=== PATIENT | female | born 1990 | race Caucasian/White ===

== ENCOUNTER → 2016-07-27 | Outpatient (CLI) | payer MEDICAID ==
[2016-07-27 09:29] LABS: ABSOLUTE EOSINOPHILS # (AUTO) 0.2 10^3/uL (0.0-0.6); ABSOLUTE LYMPHOCYTES (AUTO) 1.8 10^3/uL (0.5-4.7); ABSOLUTE MONOCYTES (AUTO) 0.7 10^3/uL (0.1-1.4); ABSOLUTE NEUT (AUTO) 3.5 10^3/uL (1.7-8.2); BASOPHILS % (AUTO) 0.7 % (0-2); EOSINOPHILS % (AUTO) 3.2 % (0-6); HEMATOCRIT 43.9 % (36.0-47.0); HEMOGLOBIN 15.1 g/dL (12.0-15.5); HGB HCT DIFFERENCE 1.4; LYMPHOCYTES % (AUTO) 28.2 % (13-45); MEAN CORPUSCULAR HEMOGLOBIN 28.7 pg (27.0-33.4); MEAN CORPUSCULAR HGB CONC 34.3 g/dL (32.0-36.0); MEAN CORPUSCULAR VOLUME 84 fl (80-97); MONOCYTES % (AUTO) 11.4 % (3-13); RED BLOOD COUNT 5.25 10^6/uL (3.72-5.28); RED CELL DISTRIBUTION WIDTH 13.5 % (11.5-14.0); SEGMENTED NEUTROPHILS % (AUTO) 56.5 % (42-78); WHITE BLOOD COUNT 6.2 10^3/uL (4.0-10.5)
[2016-07-27 09:31] LABS: APPEARANCE,URINE SLIGHTLY-CLOUDY; BILIRUBIN,URINE NEGATIVE (NEGATIVE); GLUCOSE, URINE NEGATIVE (NEGATIVE); KETONES,URINE NEGATIVE (NEGATIVE); LEUKOCYTE ESTERASE,URINE NEGATIVE (NEGATIVE); NITRITE,URINE NEGATIVE (NEGATIVE); PROTEIN,URINE NEGATIVE (NEGATIVE); URINE SPECIFIC GRAVITY 1.014; UROBILINOGEN,URINE NEGATIVE mg/dL (<2.0)
[2016-07-27 09:48] LABS: ALANINE AMINOTRANSFERASE 37 U/L (9-52); ALBUMIN 4.5 g/dL (3.5-5.0); ALKALINE PHOSPHATASE 70 U/L (38-126); ANION GAP 12 (5-19); ASPARTATE AMINO TRANSFERASE 26 U/L (14-36); BILIRUBIN,TOTAL 0.7 mg/dL (0.2-1.3); BLOOD UREA NITROGEN 8 mg/dL (7-20); CALCIUM 9.4 mg/dL (8.4-10.2); CARBON DIOXIDE 25 mmol/L (22-30); CHLORIDE 105 mmol/L (98-107); CHOLESTEROL 156.85 mg/dL (0-200); CREATININE RESULT 0.52 mg/dL (0.52-1.25); Direct HDL 32 mg/dL (>40); GLUCOSE 87 mg/dL (75-110); POTASSIUM 4.2 mmol/L (3.6-5.0); SODIUM 141.9 mmol/L (137-145); TRIGLYCERIDES 99 mg/dL (<150)
[2016-07-27 10:00] LABS: DIRECT LDL 103 mg/dL (<100)
[2016-07-27 10:02] LABS: FREE T3 6.72 pg/mL (2.77-5.27)
[2016-07-27 10:16] LABS: THYROID STIMULATING HORMONE 1.67 uIU/mL (0.47-4.68)
[2016-07-27 10:26] LABS: ADD HIVPANEL? NO; HIV (1 AND 2) ANTIBODY NEGATIVE (NEGATIVE)
[2016-07-28 07:44] LABS: HEPATITIS C VIRUS AB <0.1 s/co ratio (0.0-0.9)
== END ==
LOC: OD 08:22
PROVIDERS: ATTEND Emergency Medicine
DX: F11.20 Opioid dependence, uncomplicated (principal); Z79.899 Other long term (current) drug therapy; Z20.6 Contact with and (suspected) exposure to human immunodeficiency virus [HIV]
CPT/HCPCS: 36415; 80053; 80061; 81001; 81025; 82977; 83036; 84439; 84443; 84481; 84702; 85025; 86592; 86701; 86803; 86804; 87340

== ENCOUNTER → 2016-08-10 | Outpatient (CLI) | payer MEDICAID | LOC: OD 08:20 | PROVIDERS: ATTEND Emergency Medicine | DX: N91.2 Amenorrhea, unspecified (principal); F11.20 Opioid dependence, uncomplicated | CPT/HCPCS: 36415; 84702 ==

== ENCOUNTER 2016-10-06 10:16 | Observation (INO) | payer MEDICAID ==
--- NOTE | 2016-10-06 10:52 | ER Document Report ---
ED Medical Screen (RME) - General Chief Complaint: Abscess Stated Complaint: NECK PAIN AND SWELLING Mode of Arrival: Ambulatory Information source: Patient Notes: Patient is a 26-year-old at 14 weeks gestational age with prior history of IV drug abuse as recently as 2 months ago, who presents with painful swelling to her anterior neck. 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 She does have scarred track belcher overlying the area of the swelling. She denies any fevers or chills or systemic symptoms. She has had no problems with this current . She does have a history of multiple skin abscesses in the past. I have greeted and performed a rapid initial assessment of this patient. A comprehensive ED assessment and evaluation of the patient, analysis of test results and completion of the medical decision making process will be conducted by additional ED providers. TRAVEL OUTSIDE OF THE [place] IN LAST 30 DAYS: No - Related Data Allergies/Adverse Reactions: No Known Allergies Allergy (Verified 02/26/16 12:22) Home Medications: Current Home Medications Buprenorphine HCl [Subutex 8 mg Sublingual Tablet] 8 mg SL BID 10/06/16 [History ] Ondansetron HCl [Zofran 4 mg Tablet] 4 mg PO TIDP PRN 10/06/16 [History] Pnv Combo#47/Iron/FA #1/Dha [Virt-Pn Dha Softgel] 1 tab PO DAILY 10/06/16 [ History] Past Medical History Endocrine Medical History: Renal/ Medical History: Denies: Hx Peritoneal Dialysis Psychiatric Medical History: Reports: Hx Anxiety, Hx Depression Past Surgical History: Reports: Hx Section - 3 - Immunizations Hx Diphtheria, Pertussis, Tetanus Vaccination: Yes Physical Exam - Vital signs Vitals: Temp Pulse Resp BP Pulse Ox 98.7 F 67 16 119/60 99 10/06/16 10:17 10/06/16 10:17 10/06/16 10:17 10/06/16 10:17 10/06/16 10:17 Course - Vital Signs Vital signs: Temp Pulse Resp BP Pulse Ox 97.6 F 52 L 16 105/49 L 100 10/06/16 18:29 10/06/16 18:29 10/06/16 18:29 10/06/16 18:03 10/06/16 18:29 - Laboratory Result Diagrams: 10/06/16 10:50 10/06/16 10:50 Laboratory results interpreted by me: 10/06/16 10:50 Chloride 108 H Carbon Dioxide 20 L Creatinine 0.41 L AST 13 L Beta HCG, Quant 22691.00 H Doctor's Discharge - Discharge Clinical Impression: Neck abscess Disposition: HOME, SELF-CARE
[2016-10-06 11:32] LABS: ABSOLUTE EOSINOPHILS # (AUTO) 0.1 10^3/uL (0.0-0.6); ABSOLUTE LYMPHOCYTES (AUTO) 1.6 10^3/uL (0.5-4.7); ABSOLUTE MONOCYTES (AUTO) 0.5 10^3/uL (0.1-1.4); ABSOLUTE NEUT (AUTO) 6.8 10^3/uL (1.7-8.2); BASOPHILS % (AUTO) 0.3 % (0-2); EOSINOPHILS % (AUTO) 0.9 % (0-6); HEMATOCRIT 37.5 % (36.0-47.0); HEMOGLOBIN 13.2 g/dL (12.0-15.5); HGB HCT DIFFERENCE 2.1; LYMPHOCYTES % (AUTO) 18.2 % (13-45); MEAN CORPUSCULAR HGB CONC 35.1 g/dL (32.0-36.0); MEAN CORPUSCULAR VOLUME 83 fl (80-97); MONOCYTES % (AUTO) 5.7 % (3-13); RED BLOOD COUNT 4.54 10^6/uL (3.72-5.28); SEGMENTED NEUTROPHILS % (AUTO) 74.9 % (42-78); WHITE BLOOD COUNT 9.1 10^3/uL (4.0-10.5)
[2016-10-06 11:47] LABS: ALANINE AMINOTRANSFERASE 18 U/L (9-52); ALBUMIN 3.7 g/dL (3.5-5.0); ALKALINE PHOSPHATASE 83 U/L (38-126); ANION GAP 13 (5-19); ASPARTATE AMINO TRANSFERASE 13 U/L (14-36); BILIRUBIN,DIRECT 0.3 mg/dL (0.0-0.4); BILIRUBIN,TOTAL 0.6 mg/dL (0.2-1.3); BLOOD UREA NITROGEN 7 mg/dL (7-20); CALCIUM 9.5 mg/dL (8.4-10.2); CARBON DIOXIDE 20 mmol/L (22-30); CHLORIDE 108 mmol/L (98-107); CREATININE RESULT 0.41 mg/dL (0.52-1.25); GLUCOSE 92 mg/dL (75-110); POTASSIUM 4.2 mmol/L (3.6-5.0); SODIUM 141.2 mmol/L (137-145); TOTAL PROTEIN 6.6 g/dL (6.3-8.2)
[2016-10-06] MEDS ORDERED: ACETAMINOPHEN 325 MG TABLET PO ONE (12:29)
[2016-10-06] MEDS ORDERED: CLINDAMYCIN 600 MG/D5W RTU 50 ML IV ONE (12:32)
[2016-10-06 12:34] LABS: URINE BARBITURATES SCREEN NEGATIVE; URINE METHADONE SCREEN NEGATIVE; URINE OPIATES LOW NEGATIVE; URINE PHENCYCLIDINE SCREEN NEGATIVE
--- NOTE | 2016-10-06 12:35 | ER Document Report ---
ED Skin Rash/Insect Bite/Abscs - General Chief Complaint: Abscess Stated Complaint: NECK PAIN AND SWELLING Mode of Arrival: Ambulatory Information source: Patient Notes: Patient is currently 14 weeks and complains of swelling and tightness to the lower anterior neck area for the past 3 days. Patient states that area became more painful and red today. No fever. Patient does report a previous history of IV drug use although has not used anything since April of last year. Patient reports having a previous thyroglossal duct cyst that had to be drained by needle aspiration that her doctor treated to her previous IV drug use. Patient states that she used to inject in her neck because all her peripheral extremity veins were blown. TRAVEL OUTSIDE OF THE [place] IN LAST 30 DAYS: No - HPI Patient complains to provider of: Tender/swollen area Onset: Other - 3 days Onset/Duration: Persistent Quality of pain: Sharp Pain Level: 5 Skin Character: Erythema, Tenderness, Warm Skin Temperature: Warm Quality of rash: Painful Identify cause: Yes Exacerbated by: Movement Relieved by: Denies Similar symptoms previously: Yes Recently seen / treated by doctor: No - Related Data Allergies/Adverse Reactions: No Known Allergies Allergy (Verified 02/26/16 12:22) Home Medications: Current Home Medications Buprenorphine HCl [Subutex 8 mg Sublingual Tablet] 8 mg SL BID 10/06/16 [History ] Ondansetron HCl [Zofran 4 mg Tablet] 4 mg PO TIDP PRN 10/06/16 [History] Pnv Combo#47/Iron/FA #1/Dha [Virt-Pn Dha Softgel] 1 tab PO DAILY 10/06/16 [ History] Past Medical History - General Information source: Patient Last Menstrual Period: 14 weeks - Social History Smoking Status: Current Every Day Smoker Frequency of alcohol use: Occasional Drug Abuse: Other - Previous IV drug user Occupation: none Family History: Reviewed & Not Pertinent, Malignancy - Grandfather had thyroid cancer Endocrine Medical History: Renal/ Medical History: Denies: Hx Peritoneal Dialysis Psychiatric Medical History: Reports: Hx Anxiety, Hx Depression Past Surgical History: Reports: Hx Section - 3, Other - Previous thyroglossal duct cyst needle aspiration - Immunizations Hx Diphtheria, Pertussis, Tetanus Vaccination: Yes Review of Systems - Review of Systems Constitutional: No symptoms reported. denies: Fever EENT: No symptoms reported Cardiovascular: No symptoms reported. denies: Chest pain Respiratory: No symptoms reported. denies: Cough, Short of breath Gastrointestinal: No symptoms reported. denies: Nausea, Vomiting Genitourinary: No symptoms reported Female Genitourinary: No symptoms reported Musculoskeletal: Neck pain Skin: Change in color - Erythema to the anterior neck Hematologic/Lymphatic: No symptoms reported Neurological/Psychological: No symptoms reported Physical Exam - Vital signs Vitals: Temp Pulse Resp BP Pulse Ox 98.7 F 67 16 119/60 99 10/06/16 10:17 10/06/16 10:17 10/06/16 10:17 10/06/16 10:10/06/16 10:17 - General General appearance: Appears well, Alert In distress: None - HEENT Head: Normocephalic, Atraumatic Eyes: Normal Conjunctiva: Normal Ears: Normal Nasal: Normal Mouth/Lips: Normal Mucous membranes: Normal Neck: Neck mass - Tender palpable nodular lesion to anterior aspect of base of neck, overlying skin is mildly erythematous, Other - Patient with track belcher extending up the right side of anterior neck. No: Lymphadenopathy, Meningismus - Respiratory Respiratory status: No respiratory distress Chest status: Nontender Breath sounds: Normal. No: Rales, Rhonchi, Stridor, Wheezing Chest palpation: Normal - Cardiovascular Rhythm: Regular Heart sounds: S1 appreciated, S2 appreciated Murmur: No - Back Back: Normal, Nontender - Extremities General upper extremity: Normal inspection, Normal strength General lower extremity: Normal inspection, Normal strength - Neurological Neuro grossly intact: Yes Cognition: Normal [place] Coma Scale Eye Opening: Spontaneous [place] Coma Scale Verbal: Oriented Chloe Coma Scale Motor: Obeys Commands Chloe Coma Scale Total: 15 - Psychological Associated symptoms: Normal affect, Normal mood - Skin Skin Temperature: Warm Skin Moisture: Dry Skin Color: Erythema - Overlying anterior aspect of neck Course - Re-evaluation Re-evalutation: 10/06/16 12:[address] cheng, who advises consultation with surgeon. Call placed to Dr. Conley's number, Dr. Conley currently in surgery, nurse will relay message. 10/06/16 13:[address] padilla who agrees to examine pt 10/06/16 13:35 dr conley to floor, reviewed pt's diagnostic results, states he will return to see pt. - Vital Signs Vital signs: Temp Pulse Resp BP Pulse Ox 97.6 F 52 L 16 105/49 L 100 10/06/16 18:29 10/06/16 18:29 10/06/16 18:29 10/06/16 18:03 10/06/16 18:29 - Laboratory Result Diagrams: 10/06/16 10:50 10/06/16 10:50 Laboratory results interpreted by me: 10/06/16 10:50 Chloride 108 H Carbon Dioxide 20 L Creatinine 0.41 L AST 13 L Beta HCG, Quant 14108.00 H 10/06/16 19:39 Labs- Entire Visit 10/06/16 10/06/16 10/06/16 10:50 10:50 10:50 WBC 9.1 RBC 4.54 Hgb 13.2 Hct 37.5 MCV 83 MCH 29.0 MCHC 35.1 RDW 14.0 Plt Count 195 Seg Neutrophils % 74.9 Lymphocytes % 18.2 Monocytes % 5.7 Eosinophils % 0.9 Basophils % 0.3 Absolute Neutrophils 6.8 Absolute Lymphocytes 1.6 Absolute Monocytes 0.5 Absolute Eosinophils 0.1 Absolute Basophils 0.0 Sodium 141.2 Potassium 4.2 Chloride 108 H Carbon Dioxide 20 L Anion Gap 13 BUN 7 Creatinine 0.41 L Est GFR ( Amer) > 60 Est GFR (Non-Af Amer) > 60 Glucose 92 Calcium 9.5 Total Bilirubin 0.6 Direct Bilirubin 0.3 Indirect Bilirubin Not Reportable Neonat Total Bilirubin Not Reportable AST 13 L ALT 18 Alkaline Phosphatase 83 Total Protein 6.6 Albumin 3.7 Beta HCG, Quant 54247.00 H Total Beta HCG POSITIVE Urine Opiates Screen NEGATIVE Urine Methadone Screen NEGATIVE Ur Barbiturates Screen NEGATIVE Ur Phencyclidine Scrn NEGATIVE Ur Amphetamines Screen NEGATIVE U Benzodiazepines Scrn NEGATIVE Urine Cocaine Screen NEGATIVE U Marijuana (THC) Screen UNCONFIRMED POSITIVE Discharge - Discharge Clinical Impression: Neck abscess Disposition: HOME, SELF-CARE Admitting Provider: Surgicalist
[2016-10-06] MEDS ORDERED: CLINDAMYCIN HCL 150 MG CAPSULE PO ONE (13:08)
[2016-10-06] MEDS ORDERED: LIDOCAINE 0.5% INJ-PF (5 MG/ML) 50 ML SDV ONE (14:44)
--- NOTE | 2016-10-06 14:49 | HISTORY AND PHYSICAL E ---
History and Physical NAME: BHAVANI MINOR : 1990 AGE: 26Y ADMITTED: 10/06/2016 ROOM: CHIEF COMPLAINT: Mass just to the right clavicle area. HISTORY OF PRESENT ILLNESS: This is a 26-year-old female who noted painful mass for the past 3 days to the area of the right clavicle just about it. This was noted to be getting more painful, especially on extending her neck. She used to be an IV drug abuser and she used this area of the vein and the last time she used it was in April of last year. She had an ultrasound of the neck in the emergency room today which showed an irregular hypoechoic region in the deep tissues measuring 1.3 x 1.0 x 1.1 cm, possibly an abscess and also mild skin thickening and subcutaneous edema. PAST MEDICAL HISTORY: History of section x3. ALLERGIES: None known. FAMILY HISTORY: Mother has type 2 diabetes. SOCIAL HISTORY: Used to be a drug abuser for 6 years until 2012 when she used off and on and has been in rehab and taking Subutex 8 mg twice a day. REVIEW OF SYSTEMS: As in HPI. Denies any fever or shortness of breath. Painful mass just at the area of the right clavicle anteriorly on the neck that is fair and slightly tender and erythematous. She is 14 weeks . Rest of the systems unremarkable. PHYSICAL EXAMINATION: GENERAL: Well-developed, well-nourished 26-year-old female alert and oriented, complaining of discomfort along the area of the right clavicular area. HEENT: There is a 3 x 3 cm induration just at the area of the clavicle and just above it on the right side of the neck that is somewhat tender and erythematous. LUNGS: Clear. HEAT: Regular sinus rhythm. ABDOMEN: Soft and nontender. EXTREMITIES: No edema. No obvious veins for IV access in the extremities. IMPRESSION: Deep abscess along the area of the right side of the neck. PLAN: Patient for incision and drainage of this abscess. DICTATING PHYSICIAN: NICOLE LOBATO M.D. [id number] PHY#: [id number] ID: [id number] JOB#: [id number] ACCT: [id number] cc:NICOLE LOBATO M.D. [facility], [facility] Freed
[2016-10-06] MEDS ORDERED: MIDAZOLAM 2 MG/2 ML INJ ONE (15:40)
[2016-10-06] MEDS ORDERED: FENTANYL CITRATE INJ/PF 100 MCG/2 ML AMPUL ONE (15:40)
[2016-10-06] MEDS ORDERED: PROPOFOL INJ 200 MG/20 ML VIAL IV ONE (15:41)
[2016-10-06] MEDS ORDERED: CEFTRIAXONE INJ 1000 MG VIAL ONE (16:20)
[2016-10-06] MEDS ORDERED: LORAZEPAM INJ 2 MG/1 ML VIAL ONE (16:29)
[2016-10-06] MEDS: FENTANYL CITRATE INJ/PF 100 MCG/2 ML AMPUL ONE ×2 (16:36→16:46)
[2016-10-06] MEDS ORDERED: KETOROLAC TROMETHAMINE INJ/PF 30 MG/1 ML SDV ONE (16:40)
[2016-10-06] MEDS ORDERED: PROMETHAZINE HCL INJ 25 MG/1 ML VIAL IV PRN ×2 (16:48)
[2016-10-06] MEDS ORDERED: MORPHINE SULFATE 10 MG/ML INJ IV PRN (16:48)
[2016-10-06] MEDS ORDERED: DIPHENHYDRAMINE HCL 50 MG/ML VIAL IV PRN (16:48)
[2016-10-06] MEDS ORDERED: OXYCODONE-ACETAMINOPHEN 5-325 MG TABLET PO PRN ×2 (16:48)
[2016-10-06] MEDS ORDERED: FENTANYL CITRATE INJ/PF 100 MCG/2 ML AMPUL IV PRN ×3 (16:48)
[2016-10-06] MEDS ORDERED: MEPERIDINE HCL/PF INJ 25 MG/1 ML DISP.SYRIN IV PRN (16:48)
--- NOTE | 2016-10-06 17:03 | OPERATIVE REPORT E ---
Operative Report NAME: BHAVANI MINOR : 1990 AGE: 26Y DATE OF SURGERY: 10/06/2016 ROOM: ED14 PREOPERATIVE DIAGNOSIS: DEEP ABSCESS OF THE RIGHT ANTERIOR NECK AT THE AREA OF THE CLAVICLE. POSTOPERATIVE DIAGNOSIS: DEEP ABSCESS OF THE RIGHT ANTERIOR NECK AT THE AREA OF THE CLAVICLE/INTRAMUSCULAR ABSCESS. OPERATION: Incision and drainage of deep intramedullary abscess of the neck. SURGEON: NICOLE LOBATO M.D. ANESTHESIA: Local MAC. INDICATIONS: This is a 26-year-old female who used to inject her right neck vein with heroin in the past years. She claims the last time she injected it was in April of last year. She is 14 weeks and she said she is in rehab. Three days ago, started to have pain, swelling and tenderness along the right anterior neck at the area just above the clavicle. She had an ultrasound which showed a 1.1 x 1.3 x 1.1-cm abscess deep in the right anterior neck. DESCRIPTION OF PROCEDURE: With the use of an ultrasound, the abscess site was identified on the right anterior neck just above the clavicle about 2.5 cm deep. It roughly measured about 1 cm in diameter. Next, after adequate IV sedation, the right side of the neck was then prepped and draped in the usual sterile fashion. Local anesthesia was infiltrated over the palpated mass and an about 2 cm incision made. An 18-gauge needle was then injected through the midpart of the palpated mass and a small amount of pus extruded out. Next, with the use of a hemostat, the area was then punctured and dilated and at this time, more pus came out and cultures were obtained. The incision site was big enough to insert and palpated with my index finger. There was fascia over the abscess cavity and the fascia was then incised with scissors. The cavity appeared to be right to the muscle which was then sternal head of the sternocleidomastoid. The area was then copiously irrigated with saline solution. Adequate hemostasis was noted and the area was then packed with quarter-inch Iodoform gauze. Sterile dressings were placed over the operative site. Needle, instrument and sponge counts were all correct. Estimated blood loss was minimal. The patient was then brought to the PACU in satisfactory condition. DICTATING PHYSICIAN: NICOLE LOBATO M.D. [id number] PHY#: [id number] ID: [id number] JOB#: [id number] ACCT: [id number] cc:NICOLE LOBATO M.D. >
[2016-10-06 18:12] VITALS: BP 105/49
--- NOTE | 2016-10-08 14:33 | DISCHARGE SUMMARY E ---
Discharge Summary NAME: BHAVANI MINOR : 1990 AGE: 26Y ADMITTED: 10/06/2016 DISCHARGED: 10/07/2016 FINAL DIAGNOSIS: Intramuscular abscess of right clavicular head of the sternocleidomastoid muscle. PROCEDURE DONE: Incision and drainage of intramuscular abscess right clavicular head of the sternocleidomastoid muscle. SUMMARY: This is a 26-year-old female who had an incision and drainage of abscess of the right sternocleidomastoid muscle right at the clavicular insertion site. Fascia around the muscle needed to be incised to allow better evacuation of the small abscess, roughly about 1.3 cm in diameter. It was then packed. Patient discharged improved on 10/07/2016 on p.o. Toradol and clindamycin. The patient to be followed up in the surgical clinic in about a week. Patient can go earlier to the clinic in the next 3 or 4 days to remove the packing and she can remove the packing in about 2 or 3 days. DICTATING PHYSICIAN: NICOLE LOBATO M.D. [id number] PHY#: [id number] ID: [id number] JOB#: [id number] ACCT: [id number] cc:NICOLE LOBATO M.D. >
== END 2016-10-06 19:27 | disposition home or self-care (01) ==
LOC: ER 10:16 → EH 14:31 → UNDOADMOB 14:31 → EH 16:39 → 2S 17:58 → UNDODISOB 19:27
PROVIDERS: ADMIT Surgery; ATTEND Surgery
PROC: 0K9 Muscles, Drainage (ICD-10-PCS; principal; 2016-10-06 16:00)
DX: O98.812 Other maternal infectious and parasitic diseases complicating pregnancy, second trimester (principal); M60.08 Infective myositis, other site; Z3A.14 14 weeks gestation of pregnancy; F17.200 Nicotine dependence, unspecified, uncomplicated; Z87.898 Personal history of other specified conditions; Z79.891 Long term (current) use of opiate analgesic; Z98.890 Other specified postprocedural states; Z80.8 Family history of malignant neoplasm of other organs or systems; Z87.2 Personal history of diseases of the skin and subcutaneous tissue
CPT/HCPCS: 99284; 36415; 87070; 87205; 84702; 85025; 87075; 87077; 80053; 87186; 80307; 76536; 21501; J3490 ×3; J2250; J3010; J1885; J2060; J0696; J2704; 450

== ENCOUNTER → 2016-10-26 | Outpatient (CLI) | payer MEDICAID ==
[2016-10-26 14:04] LABS: ALANINE AMINOTRANSFERASE 15 U/L (9-52); ALBUMIN 3.9 g/dL (3.5-5.0); ALKALINE PHOSPHATASE 66 U/L (38-126); ANION GAP 13 (5-19); ASPARTATE AMINO TRANSFERASE 22 U/L (14-36); BILIRUBIN,DIRECT 0.4 mg/dL (0.0-0.4); BILIRUBIN,TOTAL 0.6 mg/dL (0.2-1.3); BLOOD UREA NITROGEN 7 mg/dL (7-20); CALCIUM 9.9 mg/dL (8.4-10.2); CARBON DIOXIDE 21 mmol/L (22-30); CHLORIDE 105 mmol/L (98-107); CREATININE RESULT 0.41 mg/dL (0.52-1.25); GLUCOSE 80 mg/dL (75-110); LDH 437 U/L (313-618); POTASSIUM 4.4 mmol/L (3.6-5.0); SODIUM 139.3 mmol/L (137-145); TOTAL PROTEIN 6.8 g/dL (6.3-8.2); URIC ACID 3.7 mg/dL (2.5-6.2)
[2016-10-26 14:44] LABS: ADD HIVPANEL? NO; HIV (1 AND 2) ANTIBODY NEGATIVE (NEGATIVE)
[2016-10-27 16:37] LABS: HEPATITIS C VIRUS AB 0.1 s/co ratio (0.0-0.9)
[2016-10-29 09:40] LABS: AFP MOM 1.62 (.); AFP VALUE 53.3 ng/mL (.); MULTIPLE GESTATION No (.)
[2016-10-29 13:42] LABS: GEST AGE BASED ON As provided (.)
== END ==
LOC: OD 11:33
PROVIDERS: ATTEND Student in an Organized Health Care Education/Training Program
DX: O13.9 Gestational [pregnancy-induced] hypertension without significant proteinuria, unspecified trimester (principal); Z13.0 Encounter for screening for diseases of the blood and blood-forming organs and certain disorders involving the immune mechanism; Z13.29 Encounter for screening for other suspected endocrine disorder; Z11.3 Encounter for screening for infections with a predominantly sexual mode of transmission
CPT/HCPCS: 36415; 80053; 82105; 83615; 84443; 84550; 85025; 86592; 86701; 86762; 86803; 86804; 87340

== ENCOUNTER 2016-12-16 08:29 | Emergency (ER) | payer MEDICAID ==
[2016-12-16] MEDS ORDERED: CLINDAMYCIN 900 MG/D5W RTU 50 ML IV ONE (09:20)
[2016-12-16] MEDS ORDERED: LIDOCAINE 1% INJ-PF (10 MG/ML) 30 ML SDV INJ ONE (10:22)
--- NOTE | 2016-12-16 10:34 | RADIOLOGY REPORT (SQ) ---
EXAM DESCRIPTION: HAND LEFT 3 VIEWS COMPLETED DATE/TIME: 12/16/2016 10:09 am REASON FOR STUDY: infection pain eval foreign body COMPARISON: None. EXAM PARAMETERS: NUMBER OF VIEWS: Three views. TECHNIQUE: AP, lateral and oblique radiographic images acquired of the left hand. LIMITATIONS: None. FINDINGS: MINERALIZATION: Normal. BONES: No acute fracture or dislocation. No worrisome bone lesions. JOINTS: No effusions. SOFT TISSUES: No soft tissue swelling. No foreign body. OTHER: No other significant finding. IMPRESSION: NEGATIVE STUDY OF THE LEFT HAND. NO RADIOGRAPHIC EVIDENCE OF ACUTE INJURY. TECHNICAL DOCUMENTATION: JOB ID: [id number] [employer]- All Rights Reserved
[2016-12-16 10:38] LABS: ABSOLUTE EOSINOPHILS # (AUTO) 0.2 10^3/uL (0.0-0.6); ABSOLUTE LYMPHOCYTES (AUTO) 2.2 10^3/uL (0.5-4.7); ABSOLUTE MONOCYTES (AUTO) 0.6 10^3/uL (0.1-1.4); BASOPHILS % (AUTO) 0.2 % (0-2); HEMOGLOBIN 12.6 g/dL (12.0-15.5); HGB HCT DIFFERENCE -0.2; LYMPHOCYTES % (AUTO) 14.7 % (13-45); MEAN CORPUSCULAR HGB CONC 33.1 g/dL (32.0-36.0); MEAN CORPUSCULAR VOLUME 88 fl (80-97); MONOCYTES % (AUTO) 3.9 % (3-13); RED BLOOD COUNT 4.33 10^6/uL (3.72-5.28); RED CELL DISTRIBUTION WIDTH 14.6 % (11.5-14.0); SEGMENTED NEUTROPHILS % (AUTO) 80.2 % (42-78)
[2016-12-16 10:58] LABS: ANION GAP 8 (5-19); BLOOD UREA NITROGEN 8 mg/dL (7-20); CALCIUM 9.1 mg/dL (8.4-10.2); CARBON DIOXIDE 25 mmol/L (22-30); CHLORIDE 104 mmol/L (98-107); CREATININE RESULT 0.43 mg/dL (0.52-1.25); GLUCOSE 94 mg/dL (75-110); POTASSIUM 4.3 mmol/L (3.6-5.0); SODIUM 136.9 mmol/L (137-145)
--- NOTE | 2016-12-16 12:45 | ER Document Report ---
ED General - General Chief Complaint: Hand Injury Stated Complaint: LEFT HAND INJURY Time Seen by Provider: 12/16/16 09:20 TRAVEL OUTSIDE OF THE [place] IN LAST 30 DAYS: No - HPI Patient complains to provider of: Left hand injury Notes: Patient is coming in for left hand pain left hand injury states approximately 2- 3 days prior to arrival had a nail go through her left hand since that time increased pain and swelling. Patient does have bilateral hand swelling due to a history of IV drug use. Patient denies fevers and chills. States painful range of motion of the left hand. Denies any recent antibiotics - Related Data Allergies/Adverse Reactions: No Known Allergies Allergy (Verified 12/16/16 08:32) Past Medical History - Social History Smoking Status: Unknown if Ever Smoked Family History: Reviewed & Not Pertinent, Malignancy - Grandfather had thyroid cancer Patient has suicidal ideation: No Patient has homicidal ideation: No Endocrine Medical History: Renal/ Medical History: Denies: Hx Peritoneal Dialysis Psychiatric Medical History: Reports: Hx Anxiety, Hx Depression Past Surgical History: Reports: Hx Section - 3, Other - Previous thyroglossal duct cyst needle aspiration - Immunizations Hx Diphtheria, Pertussis, Tetanus Vaccination: Yes Review of Systems - Review of Systems Constitutional: No symptoms reported EENT: No symptoms reported Cardiovascular: No symptoms reported Respiratory: No symptoms reported Gastrointestinal: No symptoms reported Genitourinary: No symptoms reported Female Genitourinary: No symptoms reported Musculoskeletal: Other - Hand pain Skin: No symptoms reported Hematologic/Lymphatic: No symptoms reported Neurological/Psychological: No symptoms reported Physical Exam - Vital signs Vitals: Temp Pulse Resp BP Pulse Ox 98.6 F 73 14 127/66 H 97 12/16/16 08:32 12/16/16 08:32 12/16/16 08:32 12/16/16 08:32 12/16/16 08:32 Interpretation: Normal - General General appearance: Appears well, Alert - HEENT Head: Normocephalic, Atraumatic Eyes: Normal Pupils: PERRL - Respiratory Respiratory status: No respiratory distress Chest status: Nontender Breath sounds: Normal Chest palpation: Normal - Cardiovascular Rhythm: Regular Heart sounds: Normal auscultation Murmur: No - Abdominal Inspection: Normal Distension: No distension Bowel sounds: Normal Tenderness: Nontender Organomegaly: No organomegaly - Back Back: Normal, Nontender - Extremities General upper extremity: Nontender, Normal color, Normal ROM, Normal temperature. No: Normal inspection - Swelling of the left hand with a center area at the sahara consistent with an abscess there is erythema clearing patient is able to make a half cyst and a full fist. Pain on extension of the digits no pain with flexion or extension of the wrist. Swelling is similar to the right hand. General lower extremity: Normal inspection, Nontender, Normal color, Normal ROM , Normal temperature, Normal weight bearing. No: Hugo's sign - Neurological Neuro grossly intact: Yes Cognition: Normal Orientation: AAOx4 [place] Coma Scale Eye Opening: Spontaneous [place] Coma Scale Verbal: Oriented Chloe Coma Scale Motor: Obeys Commands Chloe Coma Scale Total: 15 Speech: Normal Motor strength normal: LUE, RUE, LLE, RLE Sensory: Normal - Psychological Associated symptoms: Normal affect, Normal mood - Skin Skin Temperature: Warm Skin Moisture: Dry Skin Color: Normal Course - Re-evaluation Re-evalutation: 12/16/16 16:06 I&D was performed in the area in the center of the palm of left hand with approximately 1 cc of pus removed patient tolerated procedure well. Did discuss the case with hand surgery at [facility] that was network contractor patient was noted that he cannot give any recommendation at that he has not seen the patient recommend that we transfer the patient to the ER for him to evaluate the patient. I would call [facility] does not have hand surgery on I tried to contact our local orthopedic coverage however the office was closed I was recontacted by [facility] transfer robbins stating that there is orthopedic clinic here in [place] I did contact the Center I discussed the case with nursing staff stated the patient could walk into the clinic and be seen by the surgeon however he was not a hand surgeon. I discussed these options with the patient who requested to see the surgeon here in [facility]. Patient did receive a dose of clindamycin which is safe for her Ancef her . Patient with no related complications are complaints therefore patient was discharged to follow-up in a local clinic. - Vital Signs Vital signs: Temp Pulse Resp BP Pulse Ox 97.9 F 69 16 131/78 H 97 12/16/16 13:02 12/16/16 13:02 12/16/16 13:02 12/16/16 13:02 12/16/16 13:02 - Laboratory Result Diagrams: 12/16/16 10:15 12/16/16 10:15 Laboratory results interpreted by me: 12/16/16 12/16/16 10:15 10:15 WBC 15.0 H RDW 14.6 H Seg Neutrophils % 80.2 H Absolute Neutrophils 12.0 H Sodium 136.9 L Creatinine 0.43 L Procedures - Incision and Drainage Left Hand Type: Simple Anesthetic type: 1% Lidocaine mL's of anesthetic: 2 Blade size: 11 I&D procedure: Betadine prep applied Incision Method: Incision made by scalpel Amount/type of drainage: Scant amount to 1 cc of pus Discharge - Discharge Clinical Impression: , Hand abscess Condition: Good Disposition: HOME, SELF-CARE Instructions: Abscess ([facility]), Post Incision and Drainage Additional Instructions: Evaluation today shows signs of a small abscess in the middle ear hand. We did give you an IV dose of antibiotics clindamycin. I would highly recommend following up with [address] [address] [id number], [place] [address]. I recommend walking into the clinic with a walk-in clinic closes at 4: 00. Please also fill your prescription for antibiotics.. Tylenol for pain. A wound culture was performed. Prescriptions: Clindamycin HCl 300 mg PO Q6 10 Days Referrals: CHARO PAGE MD [Primary Care Provider] - Follow up as needed
[2016-12-16 13:05] VITALS: BP 131/78
== END 2016-12-16 13:05 | disposition home or self-care (01) ==
LOC: ER 08:29
PROC: 0H9GXZZ Drainage of Left Hand Skin, External Approach (ICD-10-PCS; principal; 2016-12-16)
DX: L02.512 Cutaneous abscess of left hand (principal); M79.642 Pain in left hand; M79.89 Other specified soft tissue disorders; Z33.1 Pregnant state, incidental
CPT/HCPCS: 36415; 80048; 85025; 87040; 87070; 87205; 96365; 99283

== ENCOUNTER 2017-01-04 03:32 | Emergency (ER) | payer MEDICAID ==
[2017-01-04] MEDS ORDERED: LIDOCAINE 1% INJ-PF (10 MG/ML) 30 ML SDV INJ ONE (04:13)
--- NOTE | 2017-01-04 04:14 | ER Document Report ---
ED Extremity Problem, Lower - General Chief Complaint: Abscess Stated Complaint: FOOT PAIN Time Seen by Provider: 01/04/17 03:58 Notes: Patient is a 26-year-old female, at 26 weeks gestation, the comes emergency department for chief complaint of a painful red area of swelling on her left foot. She states she first noticed this on Tuesday evening, this worsened, she was seen yesterday at urgent care and placed on Keflex, she states it has still worsened. She denies fever or chills. She is a previous heroin addict, on Suboxone, has had multiple abscesses in the past. She denies diabetes. Her tetanus is up-to-date. TRAVEL OUTSIDE OF THE [place] IN LAST 30 DAYS: No - Related Data Allergies/Adverse Reactions: No Known Allergies Allergy (Verified 12/16/16 08:32) Past Medical History - General Information source: Patient - Social History Smoking Status: Never Smoker Frequency of alcohol use: None Drug Abuse: None Lives with: Family Family History: Reviewed & Not Pertinent, Malignancy - Grandfather had thyroid cancer Patient has suicidal ideation: No Patient has homicidal ideation: No Endocrine Medical History: Renal/ Medical History: Denies: Hx Peritoneal Dialysis Psychiatric Medical History: Reports: Hx Anxiety, Hx Depression Past Surgical History: Reports: Hx Section - 3, Other - Previous thyroglossal duct cyst needle aspiration - Immunizations Hx Diphtheria, Pertussis, Tetanus Vaccination: Yes Review of Systems - Review of Systems Constitutional: No symptoms reported EENT: No symptoms reported Cardiovascular: No symptoms reported Respiratory: No symptoms reported Gastrointestinal: No symptoms reported Genitourinary: No symptoms reported Female Genitourinary: No symptoms reported Musculoskeletal: See HPI Skin: See HPI Hematologic/Lymphatic: No symptoms reported Neurological/Psychological: No symptoms reported Physical Exam - Vital signs Vitals: Temp Pulse Resp BP Pulse Ox 98.7 F 80 18 122/57 L 98 01/04/17 03:50 01/04/17 03:50 01/04/17 03:50 01/04/17 03:50 01/04/17 03:50 Interpretation: Normal - General General appearance: Appears well, Alert In distress: None - HEENT Head: Normocephalic, Atraumatic Eyes: Normal Conjunctiva: Normal Extraocular movements intact: Yes Eyelashes: Normal Pupils: PERRL Nasal: Normal Mouth/Lips: Normal Mucous membranes: Normal Pharynx: Normal Neck: Normal - Respiratory Respiratory status: No respiratory distress Chest status: Nontender Breath sounds: Normal. No: Decreased air movement, Wheezing Chest palpation: Normal - Cardiovascular Rhythm: Regular. No: Tachycardia Heart sounds: Normal auscultation, S1 appreciated, S2 appreciated Murmur: No - Abdominal Inspection: Normal Distension: No distension Bowel sounds: Normal Tenderness: Nontender. No: Tender, Guarding Organomegaly: No organomegaly - Back Back: Normal, Nontender. No: Tender - Extremities General upper extremity: Normal inspection, Nontender, Normal color, Normal ROM , Normal temperature General lower extremity: Other - Left lower extremity showing circular indurated and fluctuant area over the lateral dorsal foot, there is mild surrounding erythema and heat, there is some generalized soft tissue swelling of the foot around this as well. Normal range of motion at the ankle, normal capillary refill and sensation, lower extremity exam is unremarkable otherwise. - Neurological Neuro grossly intact: Yes Cognition: Normal Orientation: AAOx4 Chloe Coma Scale Eye Opening: Spontaneous Chloe Coma Scale Verbal: Oriented [place] Coma Scale Motor: Obeys Commands Chloe Coma Scale Total: 15 Speech: Normal Motor strength normal: LUE, RUE, LLE, RLE Sensory: Normal - Psychological Associated symptoms: Normal affect, Normal mood - Skin Skin Temperature: Warm Skin Moisture: Dry Skin Color: Normal Course - Re-evaluation Re-evalutation: Ultrasound at bedside does show a fluid collection consistent with an abscess just below the area patient poked with a needle 12 hours ago. There is some surrounding cellulitis. Patient is currently on Keflex, has a history of IV heroin abuse, currently on Suboxone. Abscess opened, drained, there actually was a moderately large amount of purulent discharge from the area, this was irrigated and packed. Patient has experience with this in the past, she actually has packing at home and states that she will repack it, cleaned, and monitored. Switching patient to clindamycin for better coverage of staph and MRSA than the Keflex. Discussed follow-up, discussed strict return precautions, patient states understanding and agreement. - Vital Signs Vital signs: Temp Pulse Resp BP Pulse Ox 98 F 77 18 117/87 H 98 01/04/17 05:35 01/04/17 05:35 01/04/17 05:35 01/04/17 05:35 01/04/17 05:35 Procedures - Incision and Drainage left dorsal foot Type: Single Anesthetic type: 1% Lidocaine mL's of anesthetic: 7 Blade size: 11 I&D procedure: Shurclens applied - Surgical cleanser, Iodoform packing placed - Plain packing placed, iodoform unavailable in the department at this time, Sterile dressing applied Incision Method: Incision made by scalpel Notes: Area cleaned with surgical cleanser, anesthesia provided with 1% lidocaine with good efficacy, horizontal incision made with moderately large amount of drainage at about 5 cc which was larger than I expected based on the size of the abscess on U/S. Abscess explored, irrigated, packed Discharge - Discharge Clinical Impression: Abscess Cellulitis Qualifiers: Site of cellulitis: extremity Site of cellulitis of extremity: lower extremity Laterality: left Qualified Code(s): L03.116 - Cellulitis of left lower limb Condition: Stable Disposition: HOME, SELF-CARE Additional Instructions: This has been drained, I recommend replacement of the packing in the next 24-48 hours as we discussed. Take the clindamycin antibiotic as prescribed. I also recommend probiotics while on this medication for bowel health. Keep area clean, I recommend elevating your foot as much as possible over the next 3-5 days. Return to emergency department immediately for any signs of worsening symptoms including spreading redness, increased swelling, fever, or any other concerning symptoms. Prescriptions: Clindamycin HCl [Cleocin 150 mg Capsule] 150 mg PO Q6 #56 capsule Forms: Special Work Note Referrals: CHARO PAGE MD [Primary Care Provider] - Follow up as needed
[2017-01-04 05:37] VITALS: BP 117/87
== END 2017-01-04 05:35 | disposition home or self-care (01) ==
LOC: ER 03:32
PROC: 0H9NXZZ Drainage of Left Foot Skin, External Approach (ICD-10-PCS; principal; 2017-01-04)
DX: L03.116 Cellulitis of left lower limb (principal)
CPT/HCPCS: 99283

== ENCOUNTER 2017-01-19 18:35 | Emergency (ER) | payer MEDICAID | END 2017-01-19 18:45 | disposition left against medical advice (07) | LOC: ER 18:35 | DX: Z53.21 Procedure and treatment not carried out due to patient leaving prior to being seen by health care provider (principal) ==

== ENCOUNTER 2017-01-20 23:32 | Emergency (ER) | payer MEDICAID ==
[2017-01-20 23:44] VITALS: BP 134/88
[2017-01-21 00:44] LABS: ABSOLUTE EOSINOPHILS # (AUTO) 0.2 10^3/uL (0.0-0.6); ABSOLUTE LYMPHOCYTES (AUTO) 2.3 10^3/uL (0.5-4.7); BASOPHILS % (AUTO) 0.2 % (0-2); EOSINOPHILS % (AUTO) 1.3 % (0-6); HEMATOCRIT 30.4 % (36.0-47.0); HEMOGLOBIN 10.5 g/dL (12.0-15.5); HGB HCT DIFFERENCE 1.1; LYMPHOCYTES % (AUTO) 15.7 % (13-45); MEAN CORPUSCULAR HEMOGLOBIN 29.5 pg (27.0-33.4); MEAN CORPUSCULAR HGB CONC 34.5 g/dL (32.0-36.0); MEAN CORPUSCULAR VOLUME 85 fl (80-97); MONOCYTES % (AUTO) 7.2 % (3-13); RED BLOOD COUNT 3.57 10^6/uL (3.72-5.28); RED CELL DISTRIBUTION WIDTH 14.1 % (11.5-14.0); SEGMENTED NEUTROPHILS % (AUTO) 75.6 % (42-78); WHITE BLOOD COUNT 14.5 10^3/uL (4.0-10.5)
[2017-01-21 00:49] LABS: AMORPHOUS SEDIMENT,URINE TRACE /HPF; APPEARANCE,URINE CLOUDY; BILIRUBIN,URINE NEGATIVE (NEGATIVE); GLUCOSE, URINE NEGATIVE (NEGATIVE); KETONES,URINE NEGATIVE (NEGATIVE); LEUKOCYTE ESTERASE,URINE NEGATIVE (NEGATIVE); NITRITE,URINE NEGATIVE (NEGATIVE); PROTEIN,URINE NEGATIVE (NEGATIVE); URINE SPECIFIC GRAVITY 1.008; UROBILINOGEN,URINE NEGATIVE mg/dL (<2.0)
[2017-01-21 00:56] LABS: ALANINE AMINOTRANSFERASE 29 U/L (9-52); ALBUMIN 3.2 g/dL (3.5-5.0); ALKALINE PHOSPHATASE 191 U/L (38-126); ANION GAP 9 (5-19); ASPARTATE AMINO TRANSFERASE 26 U/L (14-36); BILIRUBIN,DIRECT 0.4 mg/dL (0.0-0.4); BILIRUBIN,TOTAL 0.4 mg/dL (0.2-1.3); BLOOD UREA NITROGEN 7 mg/dL (7-20); CALCIUM 9.1 mg/dL (8.4-10.2); CARBON DIOXIDE 23 mmol/L (22-30); CHLORIDE 106 mmol/L (98-107); GLUCOSE 103 mg/dL (75-110); POTASSIUM 4.2 mmol/L (3.6-5.0); TOTAL PROTEIN 6.2 g/dL (6.3-8.2)
== END 2017-01-21 01:14 | disposition left against medical advice (07) ==
LOC: ER 23:32
DX: Z53.21 Procedure and treatment not carried out due to patient leaving prior to being seen by health care provider (principal)
CPT/HCPCS: 36415; 80053; 81001; 84702; 85025

== ENCOUNTER → 2019-06-26 | Outpatient (CLI) | payer MEDICAID ==
[2019-06-26 13:20] LABS: ABSOLUTE EOSINOPHILS # (AUTO) 0.1 10^3/uL (0.0-0.6); ABSOLUTE LYMPHOCYTES (AUTO) 1.6 10^3/uL (0.5-4.7); ABSOLUTE MONOCYTES (AUTO) 0.5 10^3/uL (0.1-1.4); ABSOLUTE NEUT (AUTO) 5.6 10^3/uL (1.7-8.2); BASOPHILS % (AUTO) 0.5 % (0-2); EOSINOPHILS % (AUTO) 0.9 % (0-6); HEMATOCRIT 41.8 % (36.0-47.0); HEMOGLOBIN 14.1 g/dL (12.0-15.5); LYMPHOCYTES % (AUTO) 20.4 % (13-45); MEAN CORPUSCULAR HEMOGLOBIN 26.8 pg (27.0-33.4); MEAN CORPUSCULAR HGB CONC 33.7 g/dL (32.0-36.0); MEAN CORPUSCULAR VOLUME 80 fl (80-97); MONOCYTES % (AUTO) 5.9 % (3-13); PLATELET COUNT 233 10^3/uL (150-450); RED BLOOD COUNT 5.25 10^6/uL (3.72-5.28); RED CELL DISTRIBUTION WIDTH 16.3 % (11.5-14.0); SEGMENTED NEUTROPHILS % (AUTO) 72.3 % (42-78); TOTAL CELLS COUNTED % (AUTO) 100 %; WHITE BLOOD COUNT 7.7 10^3/uL (4.0-10.5)
[2019-06-26 13:39] LABS: ALBUMIN 4.8 g/dL (3.5-5.0); ALKALINE PHOSPHATASE 160 U/L (38-126); ANION GAP 13 (5-19); ASPARTATE AMINO TRANSFERASE 22 U/L (14-36); BILIRUBIN,DIRECT 0.3 mg/dL (0.0-0.4); BILIRUBIN,TOTAL 0.4 mg/dL (0.2-1.3); BLOOD UREA NITROGEN 8 mg/dL (7-20); C-REACTIVE PROTEIN 19.8 mg/L (<10.0); CALCIUM 9.5 mg/dL (8.4-10.2); CARBON DIOXIDE 26 mmol/L (22-30); CHLORIDE 99 mmol/L (98-107); GLUCOSE 109 mg/dL (75-110); POTASSIUM 3.9 mmol/L (3.6-5.0); TOTAL PROTEIN 8.4 g/dL (6.3-8.2)
[2019-06-26 13:58] LABS: ERYTHROCYTE SEDIMENTATION RATE 13 mm/hr (0-20)
--- NOTE | 2019-06-26 16:01 | RADIOLOGY REPORT (SQ) ---
EXAM DESCRIPTION: FOREARM LEFT COMPLETED DATE/TIME: 06/26/2019 12:43 pm REASON FOR STUDY: (PRESSURE ULCER/ABSCESS) L97.522 NON-PRS CHRONIC ULCER OTH PRT LEFT FOOT W FAT LA AUTUMN L02.414 CUTANEOUS ABSCESS OF LEFT UPPER LIMB L97.219 NON-PRESSURE CHRONIC ULCER OF RIGHT CALF WITH UNSP S COMPARISON: None. NUMBER OF VIEWS: Two views. TECHNIQUE: Two radiographic images acquired of the left forearm, including elbow and wrist in at [address] one projection. LIMITATIONS: None. FINDINGS: MINERALIZATION: Normal. BONES: No acute fracture. No evidence of erosions or destruction of bone. No worrisome bone lesions . SOFT TISSUES: Ssoft tissue swelling. No obvious foreign body. OTHER: No other significant finding. IMPRESSION: 1. Soft tissue swelling. 2. No acute osseous findings. TECHNICAL DOCUMENTATION: JOB ID: [id number] [employer]- All Rights Reserved Reading location - IP/workstation name: [email or web address]
--- NOTE | 2019-06-26 17:50 | RADIOLOGY REPORT (SQ) ---
EXAM DESCRIPTION: FOOT LEFT COMPLETE COMPLETED DATE/TIME: 06/26/2019 12:43 pm REASON FOR STUDY: (PRESSURE ULCER/ABSCESS) L97.522 NON-PRS CHRONIC ULCER OTH PRT LEFT FOOT W FAT LA AUTUMN L02.414 CUTANEOUS ABSCESS OF LEFT UPPER LIMB L97.219 NON-PRESSURE CHRONIC ULCER OF RIGHT CALF WITH UNSP S COMPARISON: Left foot films 04/30/2016 NUMBER OF VIEWS: Three views. TECHNIQUE: AP, lateral and oblique radiographic images acquired of the left foot. LIMITATIONS: Radiopaque bandage FINDINGS: MINERALIZATION: Normal. BONES: No acute fracture or dislocation. No worrisome bony demineralization or periosteal new bone t o suggest osteomyelitis. JOINTS: No effusions. SOFT TISSUES: 3 cm diameter soft tissue ulcer over the dorsal lateral foot at about the level of the 5th metatarsal. Adjacent soft tissue swelling. OTHER: No other significant finding. IMPRESSION: Soft tissue ulcer. No adjacent bony findings worrisome for osteomyelitis TECHNICAL DOCUMENTATION: JOB ID: [id number] [employer]- All Rights Reserved Reading location - IP/workstation name: [email or web address]
== END ==
LOC: RAD 12:15
PROVIDERS: ATTEND Nurse Practitioner Family
DX: E11.621 Type 2 diabetes mellitus with foot ulcer (principal); L97.522 Non-pressure chronic ulcer of other part of left foot with fat layer exposed; L97.219 Non-pressure chronic ulcer of right calf with unspecified severity; L02.414 Cutaneous abscess of left upper limb
CPT/HCPCS: 36415; 80053; 83036; 85025; 85652; 86140